=== PATIENT | male | born 1990 | race African-American/Black ===

== ENCOUNTER 2018-12-26 10:28 | Emergency (ER) | payer SELFPAY ==
--- NOTE | 2018-12-26 11:15 | EDM.PDOC ---
ED HPI GENERAL MEDICAL PROBLEM - General Chief Complaint: General Stated Complaint: FLU SYMPTOMS Time Seen by Provider: 12/26/18 10:34 Source of Information: Reports: Patient History Limitations: Reports: No Limitations - History of Present Illness INITIAL COMMENTS - FREE TEXT/NARRATIVE: HISTORY AND PHYSICAL: History of present illness: Patient is a 28-year-old male who presents to the emergency room today with complaints of "flulike symptoms". He states over the past 2-3 days he has had a sore throat, dry nonproductive cough and body aches. He has not used any over- the-counter products. Patient denies any fever, chills, headache, change in vision, syncope or near syncope. Denies any chest pain, back pain, shortness of breath. Denies any abdominal pain, nausea, vomiting, diarrhea, constipation or dysuria. Has not noted any blood in urine or stool. Patient has been eating and drinking appropriately. Review of systems: As per history of present illness and below otherwise all systems reviewed and negative. Past medical history: As per history of present illness and as reviewed below otherwise noncontributory. Surgical history: As per history of present illness and as reviewed below otherwise noncontributory. Social history: See social history for further information Family history: As per history of present illness and as reviewed below otherwise noncontributory. Physical exam: General: Well-developed and well-nourished 28-year-old -[place] male. Alert and oriented. Nontoxic appearing and in no acute distress. HEENT: Atraumatic, normocephalic, pupils equal and reactive bilaterally, negative for conjunctival pallor or scleral icterus, mucous membranes moist, TMs normal bilaterally, throat mild erythema without exudate, neck supple, nontender, trachea midline. No drooling or trismus noted. No meningeal signs. No hot potato voice noted. Lungs: Clear to auscultation, breath sounds equal bilaterally, chest tender to bilateral sides anteriorly. Heart: S1S2, regular rate and rhythm without overt murmur Abdomen: Soft, nondistended, nontender. Negative for masses or hepatosplenomegaly. Negative for costovertebral tenderness. Pelvis: Stable nontender. Genitourinary: Deferred. Rectal: Deferred. Skin: Intact, warm, dry. No lesions or rashes noted. Extremities: Atraumatic, moves all extremities per self without difficulty or deficits, negative for cords or calf pain. Neurovascular unremarkable. Neuro: Awake, alert, oriented. Cranial nerves II through XII unremarkable. Cerebellum unremarkable. Motor and sensory unremarkable throughout. Exam nonfocal. Notes: Lab work is unremarkable. Chest x-ray shows no acute findings. Supportive care measures were reviewed and discussed with the patient. Voices understanding and is agreeable to plan of care. Denies any further questions or concerns at this time. Diagnostics: Strep, Influenza, CXR Therapeutics: Toradol IM Prescription: Diclofenac and Tessalon Perles Impression: Viral upper respiratory illness Plan: 1. Please use Tylenol and/or Ibuprofen as needed for pain and fever management. 2. Get plenty of Rest. Encourage fluids to prevent dehydration. 3. Please follow up with your primary care provider. Return to the ED as needed as discussed. Definitive disposition and diagnosis as appropriate pending reevaluation and review of above. chest Pain Score (Numeric/FACES): 8 - Related Data Allergies Allergy/AdvReac Type Severity Reaction Status Date / Time No Known Allergies Allergy Verified 12/26/18 11:09 Home Meds: Home Meds Benzonatate [Tessalon Perle] 100 mg PO TID PRN #30 capsule 12/26/18 [Rx] Diclofenac Sodium [Voltaren] 75 mg PO BIDMEALS PRN #30 tab.cr 12/26/18 [Rx] Past Medical History - Past Health History Medical/Surgical History: Denies Medical/Surgical History Social & Family History - Family History Family Medical History: Noncontributory - Tobacco Use Smoking Status *Q: Never Smoker Second Hand Smoke Exposure: No - Recreational Drug Use Recreational Drug Use: No ED ROS GENERAL - Review of Systems Review Of Systems: ROS reveals no pertinent complaints other than HPI. ED EXAM, GENERAL - Physical Exam Exam: See Below (See dictation) Course - Vital Signs Last Recorded V/S: Last Vital Signs Temp 97.7 F 12/26/18 11:09 Pulse 73 12/26/18 11:09 Resp 16 12/26/18 11:09 BP 123/76 12/26/18 11:09 Pulse Ox 100 12/26/18 11:09 - Orders/Labs/Meds Orders: Active Orders 24 hr Category Date Time Status Chest 2V [CR] Stat Exams 12/26/18 11:14 Taken CULTURE STREP A CONFIRMATION [RM] Stat Lab 12/26/18 11:29 Results STREP SCRN A RAPID W CULT CONF [RM] Stat Lab 12/26/18 11:29 Results Meds: Medications Discontinued Medications Generic Name Dose Route Start Last Admin Trade Name Freq PRN Reason Stop Dose Admin Ketorolac Tromethamine 60 mg 12/26/18 11:22 12/26/18 11:27 Toradol IM 12/26/18 11:23 60 mg ONETIME ONE Administration Departure - Departure Time of Disposition: 11:57 Disposition: Home, Self-Care 01 Clinical Impression: Viral upper respiratory illness - Discharge Information Prescriptions: Benzonatate [Tessalon Perle] 100 mg PO TID PRN #30 capsule PRN Reason: Cough Diclofenac Sodium [Voltaren] 75 mg PO BIDMEALS PRN #30 tab.cr PRN Reason: Pain Instructions: Upper Respiratory Infection, Adult, [id number] Referrals: PCP,None [Primary Care Provider] - Forms: ED Department Discharge Additional Instructions: The following information is given to patients seen in the emergency department who are being discharged to home. This information is to outline your options for follow-up care. We provide all patients seen in our emergency department with a follow-up referral. The need for follow-up, as well as the timing and circumstances, are variable depending upon the specifics of your emergency department visit. If you don't have a primary care physician on staff, we will provide you with a referral. We always advise you to contact your personal physician following an emergency department visit to inform them of the circumstance of the visit and for follow-up with them and/or the need for any referrals to a consulting specialist. The emergency department will also refer you to a specialist when appropriate. This referral assures that you have the opportunity for follow-up care with a specialist. All of these measure are taken in an effort to provide you with optimal care, which includes your follow-up. Under all circumstances we always encourage you to contact your private physician who remains a resource for coordinating your care. When calling for follow-up care, please make the office aware that this follow-up is from your recent emergency room visit. If for any reason you are refused follow-up, please contact the [facility] Emergency Department at and asked to speak to the emergency department charge nurse. [facility] [address] [place] [address] [facility] [address] [place] [address] 1. Please use Tylenol and/or Ibuprofen as needed for pain and fever management. 2. Get plenty of Rest. Encourage fluids to prevent dehydration. 3. Please follow up with your primary care provider. Return to the ED as needed as discussed. - My Orders Last 24 Hours: My Active Orders 12/26/18 11:14 Chest 2V [CR] Stat 12/26/18 11:29 CULTURE STREP A CONFIRMATION [RM] Stat STREP SCRN A RAPID W CULT CONF [RM] Stat - Assessment/Plan Last 24 Hours: My Active Orders 12/26/18 11:14 Chest 2V [CR] Stat 12/26/18 11:29 CULTURE STREP A CONFIRMATION [RM] Stat STREP SCRN A RAPID W CULT CONF [RM] Stat
[2018-12-26] MEDS ORDERED: Ketorolac 60 MG/2 ML SDV IM ONE (11:22)
--- NOTE | 2018-12-26 12:17 | CR ---
EXAMINATION: Two-view chest (PA and Lateral views). HISTORY: Shortness of breath. FINDINGS: The trachea is midline. The cardiomediastinal silhouette is within normal limits. No pulmonary infiltrates, effusions or pneumothorax. Osseous structures appear unremarkable. IMPRESSION: No acute cardiopulmonary process.
== END 2018-12-26 12:14 | disposition home or self-care (01) ==
LOC: MW.ED 10:28
DX: J06.9 Acute upper respiratory infection, unspecified (principal)
CPT/HCPCS: 71046; 87081; 87804; 87880; 96372; 99283; J1885

== ENCOUNTER 2019-05-04 15:42 | Emergency (ER) | payer SELFPAY ==
--- NOTE | 2019-05-04 16:03 | EDM.PDOC ---
ED HPI GENERAL MEDICAL PROBLEM - General Chief Complaint: Flank Pain Stated Complaint: KIDNEY PAIN Time Seen by Provider: 05/04/19 15:43 Source of Information: Reports: Patient History Limitations: Reports: No Limitations - History of Present Illness INITIAL COMMENTS - FREE TEXT/NARRATIVE: HISTORY AND PHYSICAL: History of present illness: Patient is a 28-year-old male presents to the ED today with concern of right sided flank pain 1 week. Patient states he also has some slight burning with urination but that this is not a consistent symptom and he has not had it today. Patient states he works at [employer] and feels that the flank pain is exacerbated by lifting heavy boxes and heavy equipment. 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 Patient states his pain is a dull 4 out of 10 and is worse when he lifts heavy boxes at work or does heavy lifting. Patient denies any blood in his urine. Patient states he has not been sexually active for 6 months and was recently checked for STDs and was clean. Patient denies any testicular or scrotal tenderness or penile drainage. Patient denies radiation of pain or any other symptoms or concerns. Patient denies fever, chills, chest pain, shortness of breath, or cough. Denies headache, neck stiff ness, change in vision, syncope, or near syncope. Denies nausea, vomiting, diarrhea, constipation, or dysuria. Has not noted any blood in urine or stool. Patient has been eating and drinking appropriately. Review of systems: As per history of present illness and below otherwise all systems reviewed and negative. Past medical history: As per history of present illness and as reviewed below otherwise noncontributory. Surgical history: As per history of present illness and as reviewed below otherwise noncontributory. Social history: See social history for further information Family history: As per history of present illness and as reviewed below otherwise noncontributory. Physical exam: General: Patient is alert, oriented, and in no acute distress. Patient sitting comfortably on exam table. HEENT: Atraumatic, normocephalic, pupils equal and reactive bilaterally, negative for conjunctival pallor or scleral icterus, mucous membranes moist, TMs normal bilaterally, throat clear, neck supple, nontender, trachea midline. No drooling or trismus noted. No meningeal signs. No hot potato voice noted. Lungs: Clear to auscultation, breath sounds equal bilaterally, chest nontender. Heart: S1S2, regular rate and rhythm without overt murmur Abdomen: Soft, nondistended, nontender. Negative for masses or hepatosplenomegaly. Negative for costovertebral tenderness. Pelvis: Stable nontender. Genitourinary: Deferred. Rectal: Deferred. Skin: Intact, warm, dry. No lesions or rashes noted. Extremities: Atraumatic, negative for cords or calf pain. Neurovascular unremarkable. Patient does have mild pain with palpation of the surrounding paraspinous muscle on the right of the lumbar spine. No obvious deformity of the complete spine. No step-offs, crepitus, or point tenderness to palpation of the complete spine. Neuro: Awake, alert, oriented. Cranial nerves II through XII unremarkable. Cerebellum unremarkable. Motor and sensory unremarkable throughout. Exam nonfocal. Notes: Discussed the importance for follow-up with a primary care provider. Voices understanding and is agreeable to plan of care. Denies any further questions or concerns at this time. Diagnostics: CBC, CMP, UA, lipase, gonorrhea and Chlamydia, abdominal/pelvic CT without contrast Therapeutics: None Prescription: Diclofenac Impression: Right flank pain Plan: 1. You can use Tylenol as directed for pain and discomfort. Take medication as prescribed 2. Follow-up with her primary care provider as discussed. Return to the ED as needed and as discussed. Definitive disposition and diagnosis as appropriate pending reevaluation and review of above. right flank Pain Score (Numeric/FACES): 8 - Related Data Allergies Allergy/AdvReac Type Severity Reaction Status Date / Time No Known Allergies Allergy Verified 05/04/19 15:49 Home Meds: Home Meds . [No Known Home Meds] 05/04/19 [History] Past Medical History - Past Health History Medical/Surgical History: Denies Medical/Surgical History HEENT History: Reports: None Cardiovascular History: Reports: None Respiratory History: Reports: None Gastrointestinal History: Reports: None Genitourinary History: Reports: None Musculoskeletal History: Reports: None Neurological History: Reports: None Psychiatric History: Reports: None Endocrine/Metabolic History: Reports: None Hematologic History: Reports: None Immunologic History: Reports: None Oncologic (Cancer) History: Reports: None Dermatologic History: Reports: None - Infectious Disease History Infectious Disease History: Reports: Chicken Pox - Past Surgical History Head Surgeries/Procedures: Reports: None HEENT Surgical History: Reports: None Cardiovascular Surgical History: Reports: None Respiratory Surgical History: Reports: None GI Surgical History: Reports: None Male Surgical History: Reports: Circumcision Endocrine Surgical History: Reports: None Neurological Surgical History: Reports: None Musculoskeletal Surgical History: Reports: None Oncologic Surgical History: Reports: None Dermatological Surgical History: Reports: None Social & Family History - Family History Family Medical History: Noncontributory - Tobacco Use Smoking Status *Q: Never Smoker Second Hand Smoke Exposure: No - Caffeine Use Caffeine Use: Reports: Coffee - Recreational Drug Use Recreational Drug Use: Yes Recreational Drug Type: Reports: Marijuana/Hashish Recreational Drug Use Frequency: Rarely ED ROS GENERAL - Review of Systems Review Of Systems: ROS reveals no pertinent complaints other than HPI. ED EXAM, GENERAL - Physical Exam Exam: See Below (See dictation) Course - Vital Signs Last Recorded V/S: Last Vital Signs Temp 36.3 C 05/04/19 15:46 Pulse 71 05/04/19 15:46 Resp 18 05/04/19 15:46 BP 145/81 H 05/04/19 15:46 Pulse Ox 99 05/04/19 15:46 - Orders/Labs/Meds Orders: Active Orders 24 hr Category Date Time Status CHLAMYDIA AND GONORRHEA BY [facility] Stat Lab 05/04/19 15:52 Received Labs: Laboratory Tests 05/04/19 05/04/19 05/04/19 Range/Units 15:52 16:37 16:37 WBC 4.24 (4.0-11.0) K/uL RBC 4.85 (4.50-5.90) M/uL Hgb 15.2 (13.0-17.0) g/dL Hct 43.1 (38.0-50.0) % MCV 88.9 (80.0-98.0) fL MCH 31.3 (27.0-32.0) pg MCHC 35.3 (31.0-37.0) g/dL RDW Std Deviation 45.9 (28.0-62.0) fl RDW Coeff of Kathy 14 (11.0-15.0) % Plt Count 263 (150-400) K/uL MPV 9.10 (7.40-12.00) fL Neut % (Auto) 50.0 (48.0-80.0) % Lymph % (Auto) 40.3 H (16.0-40.0) % Thurston % (Auto) 8.0 (0.0-15.0) % Eos % (Auto) 1.7 (0.0-7.0) % Baso % (Auto) 0.0 (0.0-1.5) % Neut # (Auto) 2.1 (1.4-5.7) K/uL Lymph # (Auto) 1.7 (0.6-2.4) K/uL Thurston # (Auto) 0.3 (0.0-0.8) K/uL Eos # (Auto) 0.1 (0.0-0.7) K/uL Baso # (Auto) 0.0 (0.0-0.1) K/uL Nucleated RBC % 0.0 /100WBC Nucleated RBCs # 0 K/uL Sodium 139 (136-148) mmol/L Potassium 3.8 (3.5-5.1) mmol/L Chloride 104 (98-107) mmol/L Carbon Dioxide 27.1 (21.0-32.0) mmol/L BUN 16 (7.0-18.0) mg/dL Creatinine 1.0 (0.8-1.3) mg/dL Est Cr Clr Drug Dosing 125.68 mL/min Estimated GFR (MDRD) > 60.0 ml/min Glucose 98 (74-106) mg/dL Calcium 8.6 (8.5-10.1) mg/dL Total Bilirubin 1.1 H (0.2-1.0) mg/dL AST 12 L (15-37) IU/L ALT 20 (14-63) IU/L Alkaline Phosphatase 59 (46-116) U/L Total Protein 7.1 (6.4-8.2) g/dL Albumin 4.1 (3.4-5.0) g/dL Globulin 3.0 (2.6-4.0) g/dL Albumin/Globulin Ratio 1.4 (0.9-1.6) Lipase 91 (73-393) U/L Urine Color YELLOW Urine Appearance CLEAR Urine pH 7.0 (5.0-8.0) Ur Specific [place] 1.010 (1.001-1.035) Urine Protein NEGATIVE (NEGATIVE) mg/dL Urine Glucose (UA) NEGATIVE (NEGATIVE) mg/dL Urine Ketones NEGATIVE (NEGATIVE) mg/dL Urine Occult Blood NEGATIVE (NEGATIVE) Urine Nitrite NEGATIVE (NEGATIVE) Urine Bilirubin NEGATIVE (NEGATIVE) Urine Urobilinogen 1.0 (<2.0) EU/dL Ur Leukocyte Esterase NEGATIVE (NEGATIVE) Departure - Departure Time of Disposition: 17:33 Disposition: Home, Self-Care 01 Clinical Impression: Right flank pain - Discharge Information Referrals: PCP,Unknown [Primary Care Provider] - Forms: ED Department Discharge Additional Instructions: The following information is given to patients seen in the emergency department who are being discharged to home. This information is to outline your options for follow-up care. We provide all patients seen in our emergency department with a follow-up referral. The need for follow-up, as well as the timing and circumstances, are variable depending upon the specifics of your emergency department visit. If you don't have a primary care physician on staff, we will provide you with a referral. We always advise you to contact your personal physician following an emergency department visit to inform them of the circumstance of the visit and for follow-up with them and/or the need for any referrals to a consulting specialist. The emergency department will also refer you to a specialist when appropriate. This referral assures that you have the opportunity for follow-up care with a specialist. All of these measure are taken in an effort to provide you with optimal care, which includes your follow-up. Under all circumstances we always encourage you to contact your private physician who remains a resource for coordinating your care. When calling for follow-up care, please make the office aware that this follow-up is from your recent emergency room visit. If for any reason you are refused follow-up, please contact the Emergency Department at and asked to speak to the emergency department charge nurse. [facility] [address] [place] [id number] [facility] [address] [place] [id number] 1. You can use Tylenol as directed for pain and discomfort. Take medication as prescribed 2. Follow-up with her primary care provider as discussed. Return to the ED as needed and as discussed. - My Orders Last 24 Hours: My Active Orders 05/04/19 15:52 CHLAMYDIA AND GONORRHEA BY [facility] Stat - Assessment/Plan Last 24 Hours: My Active Orders 05/04/19 15:52 CHLAMYDIA AND GONORRHEA BY [facility] Stat
--- NOTE | 2019-05-04 16:47 | CT ---
Indication: Right flank pain for 1 week. Technique: Multiple contiguous axial images were obtained from the lung bases through the symphysis pubis without intravenous contrast enhancement. Please note that all CT scans at this facility use dose modulation, iterative reconstruction, and/or weight-based dosing when appropriate to reduce radiation dose to as low as reasonably achievable. Comparison: None Findings: The lung bases are clear. The heart is normal in size. No pericardial effusion is identified. The unenhanced liver, spleen, pancreas, gallbladder, and adrenal glands are normal. No intrahepatic biliary ductal dilatation is identified. The kidneys are normal. No hydronephrosis or hydroureter is identified. No renal/ureteral calculi are identified. Next renal pelvis is identified on the left. In the pelvis, the prostate gland and urinary bladder normal. The small and large bowel are normal in caliber. The appendix is normal in size. No free air or free fluid is identified within the abdomen or pelvis. The aorta is normal in caliber. No lytic or blastic lesions of the spine are identified. Impression: No hydronephrosis or hydroureter. No renal/ureteral calculi identified. Please note that all CT scans at this facility use dose modulation, iterative reconstruction, and/or weight-based dosing when appropriate to reduce radiation dose to as low as reasonably achievable. Dictated by Jenifer Zaidi MD @ May 04 2019 4:41PM Signed by Dr. Jenifer Zaidi @ May 04 2019 4:45PM
[2019-05-04 17:22] LABS: BLOOD UREA NITROGEN,BUN 16 mg/dL (7.0-18.0); CARBON DIOXIDE,CO2 27.1 mmol/L (21.0-32.0); CHLORIDE,CL 104 mmol/L (98-107); GLUCOSE RANDOM 98 mg/dL (74-106); LIPASE 91 U/L (73-393); POTASSIUM,K 3.8 mmol/L (3.5-5.1); SODIUM,NA 139 mmol/L (136-148)
== END 2019-05-04 17:40 | disposition home or self-care (01) ==
LOC: MW.ED 15:42
DX: R10.9 Unspecified abdominal pain (principal); M54.5 Low back pain; X50.0XXA Overexertion from strenuous movement or load, initial encounter; Y99.0 Civilian activity done for income or pay
CPT/HCPCS: 36415; 74176; 74176-26; 80053; 81003; 83690; 85025; 87491; 87591; 99284; 99284-25

== ENCOUNTER 2019-08-11 10:27 | Emergency (ER) | payer SELFPAY ==
--- NOTE | 2019-08-11 12:18 | CT ---
INDICATION: Fall Noncontrast head CT scan. Findings: Axial noncontrast images through the brain parenchyma demonstrates no acute intracranial hemorrhage or mass. No midline shift. No abnormal extra-axial air fluid collections. Paranasal sinuses mastoid air cells skull and scalp appear unremarkable. Mucosal thickening ethmoid air cells. Impression: 1. No acute intracranial hemorrhage or mass Please note that all CT scans at this facility use dose modulation, iterative reconstruction, and/or weight-based dosing when appropriate to reduce radiation dose to as low as reasonably achievable. Dictated by Cheryl Ramirez MD @ Aug 11 2019 12:10PM Signed by Dr. Cheryl Ramirez @ Aug 11 2019 12:18PM
[2019-08-11 12:20] LABS: BLOOD UREA NITROGEN,BUN 13 mg/dL (7.0-18.0); CARBON DIOXIDE,CO2 28.3 mmol/L (21.0-32.0); CHLORIDE,CL 103 mmol/L (98-107); GLUCOSE RANDOM 91 mg/dL (74-106); POTASSIUM,K 4.2 mmol/L (3.5-5.1); SODIUM,NA 138 mmol/L (136-148)
--- NOTE | 2019-08-11 12:31 | CT ---
INDICATION: Pain after fall COMPARISON: None available TECHNIQUE: CT examination of the cervical spine is performed without contrast using spiral technique. 2 mm thick axial, sagittal and coronal reconstructions were made. Please note that all CT scans at this facility use dose modulation, iterative reconstruction, and/or weight-based dosing when appropriate to reduce radiation dose to as low as reasonably achievable. FINDINGS: : There is no sign of fracture or subluxation. The cervical vertebral bodies and intervertebral discs are normal in height and are in anatomic alignment. There is no sign of prevertebral soft tissue swelling. The airway structures are normal in appearance. The visualized skull base is normal in appearance. The visualized posterior fossa is normal in appearance. The apices of the lungs are clear. IMPRESSION: Normal CT of the cervical spine with no sign of acute injury. Please note that all CT scans at this facility use dose modulation, iterative reconstruction, and/or weight-based dosing when appropriate to reduce radiation dose to as low as reasonably achievable. Dictated by Pal Prasad MD @ Aug 11 2019 12:29PM Signed by Dr. Pal Prasad @ Aug 11 2019 12:30PM
--- NOTE | 2019-08-11 13:30 | EDM.PDOC ---
ED HPI GENERAL MEDICAL PROBLEM - General Chief Complaint: Upper Extremity Injury/Pain Stated Complaint: NUMBNESS IN HANDS Time Seen by Provider: 08/11/19 10:34 Source of Information: Reports: Patient History Limitations: Reports: No Limitations - History of Present Illness INITIAL COMMENTS - FREE TEXT/NARRATIVE: Resents reporting bilateral hand weakness and pain for one week. 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 He has noted progressive weakness, lack of material preparation worker strength, cramping up and pain in both hands. In the week previous he had had a runny nose. He is otherwise healthy and has no chronic medical problems and takes no medications. He is never had anything like this before. Denies fever, visual symptoms, neck pain, focal weakness other than hands. Denies drug or alcohol use. Admits that he has a very poor diet consisting mostly of junk food. Bilateral Hand Pain Score (Numeric/FACES): 8 - Related Data Allergies Allergy/AdvReac Type Severity Reaction Status Date / Time No Known Allergies Allergy Verified 08/11/19 10:33 Home Meds: Home Meds . [No Known Home Meds] 08/11/19 [History] Past Medical History - Past Health History Medical/Surgical History: Denies Medical/Surgical History HEENT History: Reports: None Cardiovascular History: Reports: None Respiratory History: Reports: None Gastrointestinal History: Reports: None Genitourinary History: Reports: None Musculoskeletal History: Reports: None Neurological History: Reports: None Psychiatric History: Reports: None Endocrine/Metabolic History: Reports: None Hematologic History: Reports: None Immunologic History: Reports: None Oncologic (Cancer) History: Reports: None Dermatologic History: Reports: None - Infectious Disease History Infectious Disease History: Reports: Chicken Pox - Past Surgical History Head Surgeries/Procedures: Reports: None HEENT Surgical History: Reports: None Cardiovascular Surgical History: Reports: None Respiratory Surgical History: Reports: None GI Surgical History: Reports: None Male Surgical History: Reports: Circumcision Endocrine Surgical History: Reports: None Neurological Surgical History: Reports: None Musculoskeletal Surgical History: Reports: None Oncologic Surgical History: Reports: None Dermatological Surgical History: Reports: None Social & Family History - Family History Family Medical History: Noncontributory - Tobacco Use Smoking Status *Q: Never Smoker Second Hand Smoke Exposure: No - Caffeine Use Caffeine Use: Reports: None - Recreational Drug Use Recreational Drug Use: No Review of Systems - Review of Systems Review Of Systems: See Below Constitutional: Reports: No Symptoms Eyes: Reports: No Symptoms. Denies: Blurred Vision, Pain, Photophobia, Vision Change Ears: Reports: No Symptoms Nose: Reports: No Symptoms Mouth/Throat: Reports: No Symptoms Respiratory: Reports: No Symptoms Cardiovascular: Reports: No Symptoms GI/Abdominal: Reports: No Symptoms Genitourinary: Reports: No Symptoms Musculoskeletal: Reports: Hand Pain. Denies: Neck Pain, Shoulder Pain, Arm Pain , Back Pain, Leg Pain, Foot Pain, Joint Pain, Joint Swelling, Muscle Pain, Muscle Stiffness Skin: Reports: No Symptoms Neurological: Reports: Weakness (hands only), Other (Patellar reflexes 2+ bilat. ) Psychiatric: Reports: No Symptoms. Denies: Confusion ED EXAM, GENERAL - Physical Exam Exam: See Below Course - Vital Signs Last Recorded V/S: Last Vital Signs Temp 36.4 C 08/11/19 10:34 Pulse 69 08/11/19 10:34 Resp 18 08/11/19 10:34 BP 129/74 08/11/19 10:34 Pulse Ox 100 08/11/19 10:34 - Orders/Labs/Meds Labs: Laboratory Tests 08/11/19 08/11/19 Range/Units 11:25 11:25 WBC 4.93 (4.0-11.0) K/uL RBC 4.99 (4.50-5.90) M/uL Hgb 15.4 (13.0-17.0) g/dL Hct 43.7 (38.0-50.0) % MCV 87.6 (80.0-98.0) fL MCH 30.9 (27.0-32.0) pg MCHC 35.2 (31.0-37.0) g/dL RDW Std Deviation 41.8 (28.0-62.0) fl RDW Coeff of Kathy 13 (11.0-15.0) % Plt Count 277 (150-400) K/uL MPV 9.00 (7.40-12.00) fL Neut % (Auto) 61.5 (48.0-80.0) % Lymph % (Auto) 29.8 (16.0-40.0) % [place] % (Auto) 6.3 (0.0-15.0) % Eos % (Auto) 2.4 (0.0-7.0) % Baso % (Auto) 0.0 (0.0-1.5) % Neut # (Auto) 3.0 (1.4-5.7) K/uL Lymph # (Auto) 1.5 (0.6-2.4) K/uL [place] # (Auto) 0.3 (0.0-0.8) K/uL Eos # (Auto) 0.1 (0.0-0.7) K/uL Baso # (Auto) 0.0 (0.0-0.1) K/uL Nucleated RBC % 0.0 /100WBC Nucleated RBCs # 0 K/uL ESR 1 (0-14) mm/hr Sodium 138 (136-148) mmol/L Potassium 4.2 (3.5-5.1) mmol/L Chloride 103 (98-107) mmol/L Carbon Dioxide 28.3 (21.0-32.0) mmol/L BUN 13 (7.0-18.0) mg/dL Creatinine 1.0 (0.8-1.3) mg/dL Est Cr Clr Drug Dosing 123.53 mL/min Estimated GFR (MDRD) > 60.0 ml/min Glucose 91 (74-106) mg/dL Calcium 9.3 (8.5-10.1) mg/dL Magnesium 1.9 (1.8-2.4) mg/dL Total Bilirubin 1.0 (0.2-1.0) mg/dL AST 20 (15-37) IU/L ALT 38 (14-63) IU/L Alkaline Phosphatase 58 (46-116) U/L C-Reactive Protein <0.20 (0.00-0.90) mg/dL Total Protein 7.7 (6.4-8.2) g/dL Albumin 4.4 (3.4-5.0) g/dL Globulin 3.3 (2.6-4.0) g/dL Albumin/Globulin Ratio 1.3 (0.9-1.6) Vitamin B12 864 (193-986) pg/mL TSH 3rd Generation 2.36 (0.36-3.74) uIU/mL - Re-Assessments/Exams Free Text/Narrative Re-Assessment/Exam: 08/11/19 13:47 Dr. Lofton fully examined and interview the patient. Free Text/Narrative Re-Assessment/Exam: 08/11/19 13:[address] See Godwin MD urgency medicine at [facility]. Lab and imaging results exam and clinical presentation reviewed. Same accepts patient in transfer Departure - Departure Time of Disposition: 13:51 Disposition: DC/Tfer to Acute Hospital 02 Condition: Good Clinical Impression: Hand weakness - Discharge Information Referrals: PCP,None [Primary Care Provider] - Sepsis Event Note - Evaluation Sepsis Screening Result: No Definite Risk - Focused Exam Vital Signs: Vital Signs Temp Pulse Resp BP Pulse Ox 08/11/19 10:34 36.4 C 69 18 129/74 100 Date Exam was Performed: 08/11/19 Time Exam was Performed: 13:04
--- NOTE | 2019-08-11 13:44 | EDM.PDOC ---
ED [facility] GENERAL MEDICAL PROBLEM - General Chief Complaint: Upper Extremity Injury/Pain Stated Complaint: NUMBNESS IN HANDS Time Seen by Provider: 08/11/19 10:34 Source of Information: Reports: Patient History Limitations: Reports: No Limitations - History of Present Illness INITIAL COMMENTS - FREE TEXT/NARRATIVE: Addendum note HPI 28-year-old male with no known pertinent history presents for evaluation of 7- 10 days of gradual onset largely symmetric hand weakness and paresthesias involving all fingers. Notes a preceding self-limited upper respiratory type illness. Also notes new onset, primarily nocturnal, frontal type headaches without changes in vision or hearing. No neck pain. No fevers or chills. No blood thinners or antiplatelet medications. No known coagulopathies. No neck trauma. Endorses a generally poor diet with junk food, sweets, some vegetables, and some meat. No clearly identifiable provoking or relieving symptoms. Patient presented for care as he is been dropping items at work and his hand weakness is interfering with ADLs. Denies: 1. Trauma, chiropractic manipulation, or holding head in an unusual manner for an extended period of time. 2. Headache, changes in vision. 3. Fevers, chills, immunocompromise, IVDU. 4. Anticoagulation. 5. Weakness or change in sensation of upper extremities. 6. Change in gait. 7. History of RA, ankylosing spondylitis, psoriatic spondyloarthropathy. 8. Difficulty swallowing. 9. Normal bowel or bladder function. M/S/F/SocHx notable for: please see HPI; remainder reviewed with patient and in chart. ROS: Negative constitutional, eye, cardiovascular, pulmonary, GI, , MSK, skin , neurologic, psychiatric, endocrine unless noted in the HPI. Exam Gen: Pleasant, non-toxic appearing, resting comfortably. HEENT: NC, AT, patient able to comfortably swallow. Resp: Clear to auscultation bilaterally, normal work of breathing, no accessory muscle usage. Card: Regular rate and rhythm with no murmurs, rubs, or gallops, extremities warm and well perfused. GI: Non-tender to palpation throughout all quadrants, non-distended, no rebound or guarding. MSK: Gen - No visible deformities, strength and tone without visually appreciable deficit. C/T-Spine - no tenderness palpation or palpable abnormalities of C-spine through T3/4. Neck with full flexion and extension, negative Lhermitte sign. Patient able to rotate and lateral bend with full functional range of motion. Negative Spurling sign bilaterally. Neuro: alert and oriented 3. CN - no facial asymmetry, no gaze preference, no slurring of speech. Pupils equal and reactive, EOMI, no ptosis, no facial asymmetry, no nystagmus, phonation intact. Cerebellar - Moving all extremities without dysmetria. C4 - bilateral scapulas in normal alignment (no winging). C5 - 5/5 bilateral shoulder abduction. Sensation intact to touch inferior/ lateral to the deltoid bilaterally. C6 - 5/5 wrist extension bilaterally, sensation intact to touch at the thumbs bilaterally. C7 - 5/5 wrist flexion bilaterally, sensation intact to touch on fingers 2- 4. C8 - 5/5 design intern strength bilaterally, sensation intact to touch on the 5th finger bilaterally. T1 - 5/5 finger abduction bilaterally, sensation intact to touch of the medial elbow bilaterally.[ Note: on wrist flexion, extension, and design intern strength while there is 5/5 strength, there is a notable decrease from appropriate for the patients build and age. Reflexes: 3+ bilateral patellar reflexes, left biceps reflex absent, 1+ right biceps reflex. Negative Tinels and Phalens sign bilaterally. Psych: Mood and affect appropriate. MDM Previous chart, nursing note, labs, imaging, and vitals reviewed. A: 28-year-old male with no known pertinent history presents for evaluation of 7 -10 days of gradual onset largely symmetric hand weakness and paresthesias involving all fingers. DDx: muscle strain, torticollis, splenius capitis syndrome, cervical spondylosis , cervical stenosis, epidural abscess, discitis, osteomyelitis, epidural hematoma, epidural abscess, cervical disc herniation, transverse myelitis, radiculopathy, fracture, arthritis, Guillain-Mckinley syndrome (Cedeño Schultz variant or paraparetic variant), electrolyte abnormalities, malnutrition. Evaluation: laboratory studies and CT head and neck (with contrast) unremarkable. Transverse myelitis, and Guillain-Mckinley syndrome remain prominent on the differential, however alternate etiologies have yet to be excluded as well. MRI and neurology unavailable at this facility patient accepted in transfer to [facility] and transferred by ALS, no features to suggest impending respiratory involvement or other imminent life-threatening processes. Lumbar puncture deferred to the accepting physician as appropriate. Impression: bilateral hand weakness and paresthesias. Bilateral Hand Pain Score (Numeric/FACES): 8 - Related Data Allergies Allergy/AdvReac Type Severity Reaction Status Date / Time No Known Allergies Allergy Verified 08/11/19 10:33 Home Meds: Home Meds . [No Known Home Meds] 08/11/19 [History] Past Medical History - Past Health History Medical/Surgical History: Denies Medical/Surgical History HEENT History: Reports: None Cardiovascular History: Reports: None Respiratory History: Reports: None Gastrointestinal History: Reports: None Genitourinary History: Reports: None Musculoskeletal History: Reports: None Neurological History: Reports: None Psychiatric History: Reports: None Endocrine/Metabolic History: Reports: None Hematologic History: Reports: None Immunologic History: Reports: None Oncologic (Cancer) History: Reports: None Dermatologic History: Reports: None - Infectious Disease History Infectious Disease History: Reports: Chicken Pox - Past Surgical History Head Surgeries/Procedures: Reports: None HEENT Surgical History: Reports: None Cardiovascular Surgical History: Reports: None Respiratory Surgical History: Reports: None GI Surgical History: Reports: None Male Surgical History: Reports: Circumcision Endocrine Surgical History: Reports: None Neurological Surgical History: Reports: None Musculoskeletal Surgical History: Reports: None Oncologic Surgical History: Reports: None Dermatological Surgical History: Reports: None Social & Family History - Family History Family Medical History: Noncontributory - Tobacco Use Smoking Status *Q: Never Smoker Second Hand Smoke Exposure: No - Caffeine Use Caffeine Use: Reports: None - Recreational Drug Use Recreational Drug Use: No ED ROS GENERAL - Review of Systems Review Of Systems: See Below ED EXAM, GENERAL - Physical Exam Exam: See Below Course - Vital Signs Last Recorded V/S: Last Vital Signs Temp 36.4 C 08/11/19 10:34 Pulse 69 08/11/19 10:34 Resp 18 08/11/19 10:34 BP 129/74 08/11/19 10:34 Pulse Ox 100 08/11/19 10:34 - Orders/Labs/Meds Labs: Laboratory Tests 08/11/19 08/11/19 Range/Units 11:25 11:25 WBC 4.93 (4.0-11.0) K/uL RBC 4.99 (4.50-5.90) M/uL Hgb 15.4 (13.0-17.0) g/dL Hct 43.7 (38.0-50.0) % MCV 87.6 (80.0-98.0) fL MCH 30.9 (27.0-32.0) pg MCHC 35.2 (31.0-37.0) g/dL RDW Std Deviation 41.8 (28.0-62.0) fl RDW Coeff of Kathy 13 (11.0-15.0) % Plt Count 277 (150-400) K/uL MPV 9.00 (7.40-12.00) fL Neut % (Auto) 61.5 (48.0-80.0) % Lymph % (Auto) 29.8 (16.0-40.0) % [place] % (Auto) 6.3 (0.0-15.0) % Eos % (Auto) 2.4 (0.0-7.0) % Baso % (Auto) 0.0 (0.0-1.5) % Neut # (Auto) 3.0 (1.4-5.7) K/uL Lymph # (Auto) 1.5 (0.6-2.4) K/uL [place] # (Auto) 0.3 (0.0-0.8) K/uL Eos # (Auto) 0.1 (0.0-0.7) K/uL Baso # (Auto) 0.0 (0.0-0.1) K/uL Nucleated RBC % 0.0 /100WBC Nucleated RBCs # 0 K/uL ESR 1 (0-14) mm/hr Sodium 138 (136-148) mmol/L Potassium 4.2 (3.5-5.1) mmol/L Chloride 103 (98-107) mmol/L Carbon Dioxide 28.3 (21.0-32.0) mmol/L BUN 13 (7.0-18.0) mg/dL Creatinine 1.0 (0.8-1.3) mg/dL Est Cr Clr Drug Dosing 123.53 mL/min Estimated GFR (MDRD) > 60.0 ml/min Glucose 91 (74-106) mg/dL Calcium 9.3 (8.5-10.1) mg/dL Magnesium 1.9 (1.8-2.4) mg/dL Total Bilirubin 1.0 (0.2-1.0) mg/dL AST 20 (15-37) IU/L ALT 38 (14-63) IU/L Alkaline Phosphatase 58 (46-116) U/L C-Reactive Protein <0.20 (0.00-0.90) mg/dL Total Protein 7.7 (6.4-8.2) g/dL Albumin 4.4 (3.4-5.0) g/dL Globulin 3.3 (2.6-4.0) g/dL Albumin/Globulin Ratio 1.3 (0.9-1.6) Vitamin B12 864 (193-986) pg/mL TSH 3rd Generation 2.36 (0.36-3.74) uIU/mL Departure - Departure Time of Disposition: 13:44 Disposition: DC/Tfer to Other 70 Clinical Impression: Hand weakness - Discharge Information Referrals: PCP,None [Primary Care Provider] - Forms: ED Department Discharge Sepsis Event Note - Evaluation Sepsis Screening Result: No Definite Risk - Focused Exam Vital Signs: Vital Signs Temp Pulse Resp BP Pulse Ox 08/11/19 10:34 36.4 C 69 18 129/74 100 Date Exam was Performed: 08/11/19 Time Exam was Performed: 13:43
== END 2019-08-11 14:01 ==
LOC: MW.ED 10:27
DX: R53.1 Weakness (principal)
CPT/HCPCS: 70460; 70460-26; 72126; 72126-26; 80053; 82607; 83735; 84443; 85025; 85652; 86140; 99284; 99285-25

== ENCOUNTER 2021-06-22 12:58 | Emergency (ER) | payer MEDICAID ==
--- NOTE | 2021-06-22 15:00 | EDM.PDOC ---
ED HPI GENERAL MEDICAL PROBLEM - General Chief Complaint: Laceration Stated Complaint: RT HAND CUT FINGER Time Seen by Provider: 06/22/21 14:55 Source of Information: Reports: Patient - History of Present Illness INITIAL COMMENTS - FREE TEXT/NARRATIVE: 30-year-old male presents with laceration to the right middle finger. This happened about 2 hours prior to arrival. He states he has bleeding in he nor polo is able to get things to stop bleed but he is not stopping bleeding. Last tetanus shot between 3 to 5 years he states. Moderate discomfort worse with movement Right Finger-Index Pain Score (Numeric/FACES): 9 - Related Data Allergies Allergy/AdvReac Type Severity Reaction Status Date / Time No Known Allergies Allergy Verified 06/22/21 13:52 Home Meds: Home Meds . [No Known Home Meds] 08/11/19 [History] Past Medical History - Past Health History Medical/Surgical History: Denies Medical/Surgical History HEENT History: Reports: None Cardiovascular History: Reports: None Respiratory History: Reports: None Gastrointestinal History: Reports: None Genitourinary History: Reports: None Musculoskeletal History: Reports: None Neurological History: Reports: None Psychiatric History: Reports: None Endocrine/Metabolic History: Reports: None Hematologic History: Reports: None Immunologic History: Reports: None Oncologic (Cancer) History: Reports: None Dermatologic History: Reports: None - Infectious Disease History Infectious Disease History: Reports: Chicken Pox - Past Surgical History Head Surgeries/Procedures: Reports: None HEENT Surgical History: Reports: None Cardiovascular Surgical History: Reports: None Respiratory Surgical History: Reports: None GI Surgical History: Reports: None Male Surgical History: Reports: Circumcision Endocrine Surgical History: Reports: None Neurological Surgical History: Reports: None Musculoskeletal Surgical History: Reports: None Oncologic Surgical History: Reports: None Dermatological Surgical History: Reports: None Social & Family History - Family History Family Medical History: No Pertinent Family History - Tobacco Use Second Hand Smoke Exposure: No - Caffeine Use Caffeine Use: Reports: None - Recreational Drug Use Recreational Drug Use: No ED ROS GENERAL - Review of Systems Review Of Systems: See Below Musculoskeletal: Denies: Joint Pain Skin: Reports: Other (Laceration) Neurological: Reports: Other (Throbbing pain) ED EXAM, SKIN/RASH Exam: See Below Text/Narrative:: CONSTITUTIONAL: well appearing in no acute distress SKIN: Centimeter laceration to the lateral side of the middle finger. It is distal to the insertion of the extensor tendon function. No foreign body or obvious bony involvement HENT: Normocephalic, atraumatic, NECK: normal range of motion PULMONARY: normal chest rise and fall, no respiratory distress or stridor NEUROLOGIC: normal speech, moves all extremities, grossly non-focal MUSCULOSKELETAL: no gross deformities, atraumatic no underlying bony tenderness PSYCHIATRIC: normal mood and affect ED SKIN PROCEDURES - Laceration/Wound Repair Right Digit - 3rd (Middle) Progress/Comments: Betadine used to clean the digit. 5 cc of lidocaine was used to anesthetize the finger via digital block. Nursing with copious high-pressure irrigation. 3x4 0 Ethilon sutures placed to the fingertip to close the laceration. Patient tolerated procedure well and there were no complications Course - Vital Signs Text/Narrative:: Patient presents with a finger laceration. This was sutured in the emergency department. Patient's tetanus up-to-date. It is distal where the tendon insertion is. It does appear superficial but x-ray was given be done but the patient declines at this time. He feels confident that does not hit the bone and I cannot tell without certainty without x-ray but he declines at this time. There is no overt bony tenderness. Suture removal in 1 week Last Recorded V/S: Last Vital Signs Temp 36.4 C 06/22/21 13:48 Pulse 80 06/22/21 13:48 Resp 20 06/22/21 13:48 BP 136/76 06/22/21 13:48 Pulse Ox 100 06/22/21 13:48 - Orders/Labs/Meds Meds: Medications Discontinued Medications Generic Name Dose Route Start Last Admin Trade Name Nidhi PRN Reason Stop Dose Admin Lidocaine HCl 5 ml 06/22/21 14:58 06/22/21 15:19 Lidocaine 1% 5 Ml Sdv INJECT 06/22/21 14:59 5 ml ONETIME ONE Administration Departure - Departure Time of Disposition: 15:41 Disposition: Home, Self-Care 01 Condition: Good Clinical Impression: Finger laceration - Discharge Information Instructions: Laceration Care, Adult Referrals: PCP,None [Primary Care Provider] - Forms: ED Department Discharge Additional Instructions: Return for redness, discharge, warmth or tenderness to the finger or fevers. Suture removal in 10 days. The following information is given to patients seen in the emergency department who are being discharged to home. This information is to outline your options for follow-up care. We provide all patients seen in our emergency department with a follow-up referral. The need for follow-up, as well as the timing and circumstances, are variable depending upon the specifics of your emergency department visit. If you don't have a primary care physician on staff, we will provide you with a referral. We always advise you to contact your personal physician following an emergency department visit to inform them of the circumstance of the visit and for follow-up with them and/or the need for any referrals to a consulting specialist. The emergency department will also refer you to a specialist when appropriate. This referral assures that you have the opportunity for follow-up care with a specialist. All of these measure are taken in an effort to provide you with optimal care, which includes your follow-up. Primary care clinics in the area: [facility] [address] [place] [address] [place] [address] Under all circumstances we always encourage you to contact your private physician who remains a resource for coordinating your care. When calling for follow-up care, please make the office aware that this follow-up is from your recent emergency room visit. If for any reason you are refused follow-up, please contact the [facility] Emergency Department at and asked to speak to the emergency department charge nurse. Sepsis Event Note (ED) - Evaluation Sepsis Screening Result: No Definite Risk - Focused Exam Vital Signs: Vital Signs Temp Pulse Resp BP Pulse Ox 06/22/21 13:48 36.4 C 80 20 136/76 100
== END 2021-06-22 16:20 | disposition home or self-care (01) ==
LOC: MW.ED 12:58
DX: S61.212A Laceration without foreign body of right middle finger without damage to nail, initial encounter (principal); W26.8XXA Contact with other sharp object(s), not elsewhere classified, initial encounter
CPT/HCPCS: 12001; 99282-25

== ENCOUNTER 2021-07-09 14:13 | Emergency (ER) | payer MEDICAID ==
[2021-07-09] MEDS ORDERED: Sodium Chloride 0.9% 1,000 ML IV ONE ×2 (14:26→14:36)
[2021-07-09] MEDS ORDERED: Adenosine 6 MG/2 ML SDV IVPUSH ONE ×2 (14:28)
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
[2021-07-09] MEDS ORDERED: LORazepam 2 MG/ML SDV IVPUSH ONE (14:35)
--- NOTE | 2021-07-09 15:06 | CR ---
Indication: Tachycardia Comparison: Two-view chest December 26, 2018 Technique: Single AP view chest Findings: There is hyperinflation and central bronchial thickening. There is no focal consolidation, effusion, or pneumothorax. The cardiomediastinal silhouette is within normal limits. The bony thorax is grossly intact. Impression: Hyperinflation and mild central bronchial thickening without dense consolidation. Dictated by Arian Crandall MD @ 07/09/2021 3:04:21 PM (Electronically Signed)
[2021-07-09 16:01] LABS: BLOOD UREA NITROGEN,BUN 10 mg/dL (7.0-18.0); CARBON DIOXIDE,CO2 26.8 mmol/L (21.0-32.0); CHLORIDE,CL 101 mmol/L (98-107); GLUCOSE RANDOM 129 mg/dL (74-106); POTASSIUM,K 3.3 mmol/L (3.5-5.1); SODIUM,NA 140 mmol/L (136-148)
== END 2021-07-09 16:35 | disposition home or self-care (01) ==
LOC: MW.ED 14:13
DX: T50.901A Poisoning by unspecified drugs, medicaments and biological substances, accidental (unintentional), initial encounter (principal); I47.1 Supraventricular tachycardia
CPT/HCPCS: 36415; 71045; 80053; 80305; 80307; 83735; 84443; 84484; 85025; 93005; 96374; 96375; 99285; J0153; J2060; J7030